=== PATIENT | male | born 2000 | race Caucasian/White ===

== ENCOUNTER 2023-02-04 03:48 | Emergency (ER) | payer OTHER ==
[~2023-02-04] VITALS: Ht 172.7 cm; Wt 85.0 kg
[2023-02-04 04:01] VITALS: PULSE 107; RESP 16
[2023-02-04 04:04] VITALS: BP 130/87; TEMP 98.2; O2SAT 99
[2023-02-04 05:03] LABS: BASOPHILS % 0.7 % (0.0-2.0); EOSINOPHILS % 3.2 % (0.0-5.0); HEMATOCRIT. 42.5 % (42.0-52.0); HEMOGLOBIN. 14.5 g/dL (14.0-18.0); LYMPHOCYTES % 29.2 % (20.0-50.0); MEAN CORPUSCULAR HEMOGLOBIN 30.1 pg (28.0-32.0); MEAN CORPUSCULAR HGB CONC 34.2 g/dL (31.0-37.0); MEAN CORPUSCULAR VOLUME 87.9 fL (80.0-94.0); MEAN PLATELET VOLUME 7.6 fl (7.4-10.4); MONOCYTES % 7.4 % (2.0-8.0); NEUTROPHILS % 59.5 % (40.0-76.0); PLATELET 232 x1000/uL (130-400); RED BLOOD CELL COUNT 4.83 mill/uL (4.7-6.1); WHITE BLOOD COUNT 6.1 x1000/uL (4.5-11.0)
[2023-02-04 05:11] LABS: CHLORIDE 110 mEq/L (98-107); INDEX HEMOLYSI 2 (1-3); INDEX ICTERIC 1 (1-4); INDEX LIPEMIC 1 (1-3); POTASSIUM 3.8 mEq/L (3.5-5.1); SODIUM 140 mEq/L (136-145)
[2023-02-04 05:20] LABS: ALANINE AMINOTRANSFERASE 76 IU/L (13-61); ASPARTATE AMINOTRANSFERASE 48 IU/L (15-37); BILIRUBIN TOTAL 0.4 mg/dL (0.1-1.0); CALCIUM 8.7 mg/dL (8.5-10.1); CARBON DIOXIDE 27 mEq/L (21-32); CREATININE 1.1 mg/dL (0.6-1.3); GLUCOSE 109 mg/dL (70-105); PROTEIN TOTAL 7.9 g/dL (6.0-8.3); TROPONIN I HIGH SENSITIVITY 26 ng/L (<78); UREA NITROGEN BLOOD 13 mg/dL (7-21)
[2023-02-04 05:23] LABS: PARTIAL THROMBOPLASTIN TIME 29.8 sec (23.4-31.0); PROTHROMBIN TIME 10.4 sec (9.6-11.0)
== END 2023-02-04 08:33 | disposition left against medical advice (07) ==
LOC: ER 03:48
DX: R07.89 Other chest pain (principal); Z53.21 Procedure and treatment not carried out due to patient leaving prior to being seen by health care provider
CPT/HCPCS: 36415; 71045; 80053; 84484; 85025; 93005; 99281